=== PATIENT | female | born 1985 ===

== ENCOUNTER 2023-05-21 18:32 | Emergency (ER) | payer MEDICAID ==
[2023-05-21 19:59] LABS: CORONAVIRUS COVID-19 NAA NEGATIVE (NEGATIVE); INFLUENZA A NAA NEGATIVE (NEGATIVE); INFLUENZA B NAA NEGATIVE (NEGATIVE); RESPIRATORY SYNCYTIAL VIR NAA NEGATIVE (NEGATIVE)
== END 2023-05-21 20:36 | disposition home or self-care (01) ==
LOC: DL.ED 18:32
DX: B34.9 Viral infection, unspecified (principal); Z86.16 Personal history of COVID-19
CPT/HCPCS: 0241U; 87081; 87430; 99284

== ENCOUNTER 2023-08-02 12:28 | Emergency (ER) | payer MEDICAID ==
[2023-08-02] MEDS: Gentamicin 0.3% Ophth Soln 5 ML Bottle EYERT ONE (13:12)
[2023-08-02] MEDS: Loratadine 10 MG Tab PO ONE (13:17)
[2023-08-02] MEDS: Take Home: predniSONE 20 MG, 4 Tab Pack PO ONE (13:17)
== END 2023-08-02 13:30 | disposition home or self-care (01) ==
LOC: DL.ED 12:28
DX: H01.001 Unspecified blepharitis right upper eyelid (principal); E66.9 Obesity, unspecified; Z86.16 Personal history of COVID-19; Z68.32 Body mass index [BMI] 32.0-32.9, adult
CPT/HCPCS: 99283; A9270

== ENCOUNTER 2024-02-13 17:51 | Emergency (ER) | payer MEDICAID | END 2024-02-13 18:52 | disposition home or self-care (01) | LOC: DL.ED 17:51 | DX: S43.421A Sprain of right rotator cuff capsule, initial encounter (principal); M25.811 Other specified joint disorders, right shoulder; E66.9 Obesity, unspecified; Z68.32 Body mass index [BMI] 32.0-32.9, adult; Z86.16 Personal history of COVID-19; X50.0XXA Overexertion from strenuous movement or load, initial encounter | CPT/HCPCS: 99283 ==

== ENCOUNTER 2024-03-28 14:18 | Emergency (ER) | payer MEDICAID ==
[2024-03-28] MEDS: Take Home: Amoxicillin 500 MG, 6 Cap Pack PO ONE (14:39)
== END 2024-03-28 14:40 | disposition home or self-care (01) ==
LOC: DL.ED 14:18
DX: K04.7 Periapical abscess without sinus (principal); E66.9 Obesity, unspecified; Z68.32 Body mass index [BMI] 32.0-32.9, adult; Z86.16 Personal history of COVID-19
CPT/HCPCS: 99282; A9270